=== PATIENT | male | born 1955 ===

== ENCOUNTER 2017-05-11 05:18 | Day surgery (SDC) | payer BC, OTHER ==
--- NOTE | 2017-05-09 02:15 | Pre-op HX & Phy Repo 2 SIG ---
DATE OF ADMISSION: 05/11/2017 DATE OF SURGERY: 05/11/2017 Preoperative Diagnosis: Dense macular pucker, left eye with diabetic macular edema. Brief Note: This is the first [place] admission for this patient who is a very nice 61-year-old gentleman with a history of significant diabetic retinopathy and diminished vision in the left eye. Past Ocular History: Remarkable for cataract surgery in the left eye and prior laser treatment and multiple injections in both eyes for diabetic retinopathy. Over time, he has been noted to have recurrent edema and a significant epiretinal membrane in the left and is admitted for a membrane peel. MEDICAL HISTORY: Remarkable for diabetes and high blood pressure. Medications: He is on losartan, metoprolol, Januvia, glipizide, and topical eye drops. SOCIAL HISTORY: He does not smoke or drink. PHYSICAL EXAMINATION: Eye: Best vision at the time of admission was 20/30 in the right eye and 20/200 in the left with pressures of 9 and 10. The anterior segment on the right showed nuclear cataract with cortical spokes. The left showed a posterior chamber lens. Funduscopic examination showed proliferative retinopathy and diabetic macular edema on the right with moderate old laser. The left fundus shows significant epiretinal membrane. There was significant edema and proliferative changes. General physical examination be done by Dr. Beaulieu. Assessment: Diabetic macular edema with dense epiretinal membrane, left eye. Plan: The plan is to perform a pars plana vitrectomy with epiretinal membrane peeling on the left eye. ICG will be used. Endolaser will also be done. The risks and benefits of the surgery gone over the patient with potential infection, hemorrhage, inability to improve the edema, remote possibility of loss of the eye and the risk of anesthesia was discussed. The patient understands and consents to surgery to be performed on Thursday. Juanjo Mota M.D. DR: LAZARO JOB#: [id number] CC:
[~2017-05-11] VITALS: Ht 172.7 cm; Wt 72.6 kg
[2017-05-11] MEDS ORDERED: Vigamox Opth Soln ONE (05:41)
[2017-05-11] MEDS ORDERED: Phenylephrine 2.5% Op Soln ONE (05:42)
[2017-05-11] MEDS ORDERED: Flurbiprofen 0.03% Opth Sol 2.5ml ONE (05:42)
[2017-05-11] MEDS ORDERED: Cyclopentolate 1% Opth Sol ONE (05:42)
[2017-05-11] MEDS ORDERED: Pred Forte 1% Opth Susp 1ml LEFT EYE PRN (06:00)
[2017-05-11 06:06] LABS: BASOPHILS % (AUTO) 0.9 % (0.0-2.0); EOSINOPHILS % (AUTO) 5.3 % (0.0-3.0); LYMPHOCYTES % (AUTO) 20.1 % (20.0-45.0); MEAN CORPUSCULAR HEMOGLOBIN 31.2 PG (27.0-31.0); MEAN CORPUSCULAR HGB CONC 34.3 G/DL (32.0-36.0); MEAN CORPUSCULAR VOLUME 91 FL (80-99); MEAN PLATELET VOLUME 7.8 FL (6.5-10.1); MONOCYTES % (AUTO) 7.4 % (1.0-10.0); NEUTROPHILS % (AUTO) 66.3 % (45.0-75.0); PLATELET COUNT 300 K/UL (150-450); RED BLOOD COUNT 3.69 M/UL (4.70-6.10); RED CELL DISTRIBUTION WIDTH 10.8 % (11.6-14.8); WHITE BLOOD COUNT 8.9 K/UL (4.8-10.8)
--- NOTE | 2017-05-11 06:22 | Pre-Procedure Note/Attestation ---
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 I attest that, if there was a reasonable possibility of needing a blood transfusion, the patient (or the patient's legal field sales representative) was given the [place] [employer] standardized written summary, pursuant to the [place] Blood Safety Act ([place] Health and Safety Code # 1645, as amended). I attest that I re-evaluated the patient just prior to the surgery and that there has been no change in the patient's H&P, except as documented below: ALANNA LOGAN May 11, 2017 06:22
[2017-05-11 06:28] LABS: CALCIUM 10.6 mg/dL (8.6-10.2); CREATININE 1.5 mg/dL (0.7-1.2); GLOMERULAR FILTRATION RATE 47.3 mL/min (>60); POTASSIUM 3.7 mEQ/L (3.4-4.9)
[2017-05-11 06:38] VITALS: BP 143/82
[2017-05-11] MEDS: Vigamox Opth Soln LEFT EYE SCH ×3 (07:00→07:19)
[2017-05-11] MEDS ORDERED: Indocyanine Green 25mg Inj INJ ONE ×2 (07:00→09:00)
[2017-05-11] MEDS: Cyclopentolate 1% Opth Sol LEFT EYE SCH ×3 (07:00→07:19)
[2017-05-11] MEDS: Phenylephrine 2.5% Op Soln LEFT EYE SCH ×3 (07:01→07:19)
[2017-05-11] MEDS: Flurbiprofen 0.03% Opth Sol 2.5ml LEFT EYE SCH ×3 (07:01→07:19)
[2017-05-11] MEDS ORDERED: HYDRALAZINE HCL25 M1 ORAL (07:12)
[2017-05-11] MEDS ORDERED: ATORVASTATIN CA40 MG ORAL (07:12)
[2017-05-11] MEDS ORDERED: LOSARTAN POTASS50 MG ORAL (07:12)
[2017-05-11] MEDS ORDERED: METFORMIN HCL500 M1 ORAL (07:12)
[2017-05-11] MEDS ORDERED: GLIMEPIRIDE4 MG ORAL (07:12)
[2017-05-11] MEDS ORDERED: JANUVIA25 MG ORAL (07:12)
[2017-05-11] MEDS ORDERED: HYDROCHLOROTH12.5 M2 ORAL (07:12)
[2017-05-11] MEDS ORDERED: AMLODIPINE BESY10 MG ORAL (07:12)
[2017-05-11] MEDS ORDERED: Norco 5mg/325mg tab ORAL PRN ×2 (07:45→09:00)
[2017-05-11] MEDS ORDERED: LR 1000ml 1,000 ML IVLG SCH (08:55)
--- NOTE | 2017-05-11 08:59 | Anethesia Preoperative Eval ---
Anesthesia Pre-op PMH/ROS General Date of Evaluation: May 11, 2017 Time of Evaluation: 08:54 Anesthesiologist: Elpidio ASA Score: ASA 3 Mallampati Score Class I : Soft palate, uvula, fauces, pillars visible Class II: Soft palate, uvula, fauces visible Class III: Soft palate, base of uvula visible Class IV: Only hard plate visible Mallampati Classification: Class II Surgeon: Nakul Diagnosis: Macular Pucker OS Surgical Procedure: Vitrectomy OS Anesthesia History: none Family History: no anesthesia problems Allergies: Coded Allergies: No Known Allergies (Unverified , 05/08/17) Medications: see eMAR Past Medical History Cardiovascular: Reports: HTN, other - HL Gastrointestinal/Genitourinary: Reports: GERD Endocrine: Reports: DM HEENT: Reports: cataract (L), cataract (R) Hematology/Immune: Reports: anemia Anesthesia Pre-op Phys. Exam Physician Exam Last Vital Signs Date Time Temp Pulse Resp B/P (MAP) Pulse Ox O2 Delivery O2 Flow Rate FiO2 05/11/17 06:38 97.0 81 18 143/82 99 Room Air Constitutional: NAD Neurologic: CN 2-12 intact Cardiovascular: RRR Respiratory: CTA Gastrointestinal: S/NT/ND Airway Exam Mallampati Score: Class II MO: full ROM: limited Teeth: missing, intact Anesthesia Pre-op A/P Labs Hematology Test 05/11/17 06:00 White Blood Count 8.9 K/UL (4.8-10.8) Red Blood Count 3.69 M/UL (4.70-6.10) L Hemoglobin 11.5 G/DL (14.2-18.0) L Hematocrit 33.6 % (42.0-52.0) L Mean Corpuscular Volume 91 FL (80-99) Mean Corpuscular Hemoglobin 31.2 PG (27.0-31.0) H Mean Corpuscular Hemoglobin Concent 34.3 G/DL (32.0-36.0) Red Cell Distribution Width 10.8 % (11.6-14.8) L Platelet Count 300 K/UL (150-450) Mean Platelet Volume 7.8 FL (6.5-10.1) Neutrophils (%) (Auto) 66.3 % (45.0-75.0) Lymphocytes (%) (Auto) 20.1 % (20.0-45.0) Monocytes (%) (Auto) 7.4 % (1.0-10.0) Eosinophils (%) (Auto) 5.3 % (0.0-3.0) H Basophils (%) (Auto) 0.9 % (0.0-2.0) Chemistry Test 05/11/17 06:00 Sodium Level 138 mEQ/L (135-145) Potassium Level 3.7 mEQ/L (3.4-4.9) Chloride Level 101 mEQ/L (98-107) Carbon Dioxide Level 26 mEQ/L (20-30) Anion Gap 11 (5-15) Blood Urea Nitrogen 35 mg/dL (7-23) H Creatinine 1.5 mg/dL (0.7-1.2) H Estimat Glomerular Filtration Rate 47.3 mL/min (>60) Glucose Level 132 mg/dL (74-106) H Calcium Level 10.6 mg/dL (8.6-10.2) H Risk Assessment & Plan Assessment: ASA 3 Plan: Vitrectomy OS Status Change Before Surgery: Prashanth Fritz MD May 11, 2017 08:59
[2017-05-11] MEDS ORDERED: Sterile Water Irrig 1000ml IRRIG ONE (09:00)
[2017-05-11] MEDS ORDERED: DiphenhydrAMINE 50mg/ml Inj IVP PRN (09:00)
[2017-05-11] MEDS ORDERED: fentaNYL 100 mcg/2 mL IV PRN (09:00)
[2017-05-11] MEDS ORDERED: LR 1000ml ONE (09:00)
[2017-05-11] MEDS ORDERED: Ketorolac 30mg Inj IV PRN (09:00)
[2017-05-11] MEDS ORDERED: oxyCODONE HCL/Acetaminophen 5/325mg ORAL PRN (09:00)
[2017-05-11] MEDS ORDERED: Lidocaine 1% MPF 10mg/ml 5ml ONE (09:00)
[2017-05-11] MEDS ORDERED: LORazepam Inj 2mg/ml 1ml IV PRN (09:00)
[2017-05-11] MEDS ORDERED: Alfentanil 2ml Inj ONE (09:00)
[2017-05-11] MEDS ORDERED: Norco 7.5mg/325mg tab ORAL PRN (09:00)
[2017-05-11] MEDS ORDERED: Propofol 200mg/20ml IV ONE (09:00)
[2017-05-11] MEDS ORDERED: Midazolam 2mg/2ml Inj ONE (09:00)
[2017-05-11] MEDS ORDERED: Hydromorphone 0.5mg/0.5ml inj IVP PRN (09:00)
[2017-05-11] MEDS ORDERED: Ketorolac 60mg Inj IV PRN (09:00)
[2017-05-11] MEDS ORDERED: NS Irrig 1000ml ONE (09:00)
[2017-05-11] MEDS ORDERED: Meperidine 25mg/0.5ml Inj (FOR RIGORS ONLY) IV PRN (09:00)
[2017-05-11] MEDS ORDERED: Midazolam 2mg/2ml Inj IVP PRN (09:00)
[2017-05-11] MEDS ORDERED: Metoclopramide 10mg/2ml Inj IVP PRN (09:00)
[2017-05-11] MEDS ORDERED: Atropine Inj 1mg/10ml Syr IV PRN (09:00)
--- NOTE | 2017-05-11 09:00 | Immediate Post-Op Evaluation ---
Immediate Post-Op Evalulation Immediate Post-Op Evalulation Procedure: Vitrectomy OS Date of Evaluation: May 11, 2017 Time of Evaluation: 10:15 IV Fluids: 200 LR Blood Products: 0 Estimated Blood Loss: 1 Urinary Output: 0 Blood Pressure Systolic: 120 Blood Pressure Diastolic: 84 Pulse Rate: 74 Respiratory Rate: 16 O2 Sat by Pulse Oximetry: 97 Temperature (Fahrenheit): 97.6 Pain Score (1-10): 1 Nausea: No Vomiting: No Complications 0 Patient Status: awake, reacts, patent, none Hydration Status: adequate Prashanth Magallanes MD May 11, 2017 09:00
--- NOTE | 2017-05-11 09:01 | 48 Hour Post Anesthesia Eval ---
Post Anesthesia Evaluation Procedure: Vitrectomy OS Date of Evaluation: May 11, 2017 Time of Evaluation: 12:21 Blood Pressure Systolic: 138 0: 77 Pulse Rate: 72 Respiratory Rate: 18 Temperature (Fahrenheit): 98.2 O2 Sat by Pulse Oximetry: 98 Airway: patent Nausea: No Vomiting: No Pain Intensity: 0 Hydration Status: adequate Cardiopulmonary Status: Stable Mental Status/LOC: patient returned to baseline Follow-up Care/Observations: 0 Post-Anesthesia Complications: 0 Follow-up care needed: N/A Prashanth Magallanes MD May 11, 2017 09:01
[2017-05-11 10:04] VITALS: BP 120/84
--- NOTE | 2017-05-11 10:07 | Brief Operative Note ---
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
[2017-05-11] MEDS ORDERED: Maxitrol Opth Oint 3.5gm ONE (10:08)
[2017-05-11] MEDS ORDERED: Tetracaine 0.5% Opth Soln ONE (10:08)
[2017-05-11] MEDS ORDERED: Dexamethasone 4mg/ml vial ONE (10:08)
[2017-05-11] MEDS ORDERED: Kenalog-10 5ml Inj ONE (10:08)
[2017-05-11] MEDS ORDERED: BSS 500ml btl ONE (10:08)
[2017-05-11 10:09] VITALS: BP 131/85
[2017-05-11] MEDS ORDERED: Lidocaine 2% MPF 5ml Vial INJ ONE (10:09)
[2017-05-11] MEDS ORDERED: Sodium Hyaluronate 10 mg/ml 0.85ml ONE (10:09)
[2017-05-11] MEDS ORDERED: Bupivacaine 0.75% 30ml vial INJ ONE (10:09)
[2017-05-11] MEDS ORDERED: BSS 15ml BTL ONE (10:09)
[2017-05-11] MEDS ORDERED: Povidone-Iodine 5% opth solution ONE (10:09)
[2017-05-11] MEDS ORDERED: EPINEPHrine 1mg/1ml Amp ONE (10:09)
[2017-05-11 10:14] VITALS: BP 132/83
[2017-05-11 10:30] VITALS: BP 116/81
[2017-05-11 11:00] VITALS: BP 124/77
--- NOTE | 2017-05-11 19:02 | Cardiology Report ---
APPROVED REPORT EKG Measurement Heart [id number] Normal sinus rhythm Normal ECG
--- NOTE | 2017-05-12 01:15 | Operative Note - Dictated ---
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 POSTOPERATIVE DIAGNOSIS: Taut posterior hyaloid syndrome with macular pucker, left eye. PROCEDURES: 1. Pars plana vitrectomy. 2. ICG assisted membrane and ILM peel. 3. Endolaser. 4. Kenalog injection, left eye. SURGEON: Juanjo Mota M.D. LABORER CHEESEMAKING: None. ANESTHESIA: Local sedation. ANESTHESIOLOGIST: Prashanth Magallanes M.D. JUSTIFICATION FOR SURGERY: This 61-year-old gentleman with a long history of diabetes developed persistent vitreous hemorrhage and was found to have a very dense posterior hyaloid. He was admitted for surgery. BRIEF NOTE: The patient was brought to the operative room and placed on operating room table in supine position. After a time-out was performed and agreed upon by the staff, an initial monitoring secured by Dr. Magallanes. Retrobulbar and Van Lint blocks were given in the standard way. When the blocks had taken effect, he was prepped and draped in a normal manner. The lid speculum was inserted into the left eye. Using a 23-gauge trocar system, cannulas were placed in all except the infranasal quadrant. Infusion secured inferotemporally. Vitrectomy was begun posterior to the lens implant. A central core vitrectomy was done followed by peripheral vitrectomy leaving a small vitreous skirt. Kenalog was used to aid in visualization of the vitreous. At this juncture, a posterior viewing lens was inserted. The posterior pole and ILM were stained with the single drop of ICG solution. The intra-ocular forceps were then used to engage the preretinal membrane just superior to the macula. This was peeled in an area encompassing most of the posterior pole between arcades. Repeat single drop stain of the posterior pole region revealed that the internal limiting lamina had been removed and a strip, but not completely. The forceps were then used to peel the internal limiting lamina in an area roughly 3 disc diameters in size including the macula. No problems were encountered. Scleral depression was done. No peripheral breaks, tears, or detachments were seen. At this juncture, the Endolaser was brought into the eye and a power of 0.3 don and duration of 0.1 seconds. A total of 881 lesions were applied in a broad band in the far periphery. A few focal microaneurysmal leaks were directly treated posteriorly. The cannulas were then removed from the eye superiorly and each wound was closed with an 8-0 Vicryl suture. Through the infusion line, an additional 2 mg of Kenalog was injected. This wound was also closed with 8-0 Vicryl. Subconjunctival Decadron and gentamicin were then injected and Maxitrol and atropine ointments were instilled. The eye was patched and shielded and the patient was taken to recovery in excellent condition. There were no complications. Juanjo Mota M.D. DR: JARON JOB#: [id number] CC: Juanjo Mota M.D.; Fax#: [phone] [facility]
== END 2017-05-11 11:05 | disposition home or self-care (01) ==
LOC: SUR 05:18
DX: H35.372 Puckering of macula, left eye (principal); E11.311 Type 2 diabetes mellitus with unspecified diabetic retinopathy with macular edema; I10 Essential (primary) hypertension; K21.9 Gastro-esophageal reflux disease without esophagitis; D64.9 Anemia, unspecified; Z79.84 Long term (current) use of oral hypoglycemic drugs
CPT/HCPCS: 36415; 67039; 80048; 82962; 85025; 93005; J0171; J1100; J2250; J2704; J3301; J3470; J3490; J7120; 94003; 94150